=== PATIENT | male | born 1980 | race African-American/Black ===

== ENCOUNTER 2020-12-25 20:10 | Emergency (ER) | payer OTHER ==
[2020-12-25] MEDS ORDERED: DOXYCYCLINE HYCLATE 100 MG CAPSULE PO ONE ×2 (21:41→21:46)
[2020-12-25] MEDS ORDERED: DIPHTH,PERTUSS(ACELL),TET 0.5 ML DISP.SYRIN IM ONE ×2 (21:41→21:46)
[2020-12-25 21:43] VITALS: BP 132/85; PULSE 84; TEMP 98.6; BMI 31.5
[2020-12-25] MEDS ORDERED: metroNIDAZOLE 250 MG TABLET PO ONE (21:43)
[2020-12-25] MEDS ORDERED: metroNIDAZOLE 250 MG TABLET ONE (21:46)
== END 2020-12-25 23:33 | disposition home or self-care (01) ==
LOC: JERFT 20:10 → JER 20:10 → JERFT 23:33
PROC: 3E0234Z Introduction of Serum, Toxoid and Vaccine into Muscle, Percutaneous Approach (ICD-10-PCS; principal; 2020-12-25)
DX: S61.451A Open bite of right hand, initial encounter (principal); W54.0XXA Bitten by dog, initial encounter
CPT/HCPCS: 90715; 99284-25

== ENCOUNTER 2023-08-29 12:59 | Emergency (ER) | payer OTHER ==
[2023-08-29 13:03] VITALS: BP 145/81; PULSE 83; RESP 18; TEMP 98.2; BMI 32.3
[2023-08-29] MEDS ORDERED: KETOROLAC TROMETHAMINE 30 MG/1 ML VIAL ONE (14:21)
[2023-08-29] MEDS: KETOROLAC TROMETHAMINE 30 MG/1 ML VIAL IM ONE (14:25)
== END 2023-08-29 15:15 | disposition home or self-care (01) ==
LOC: JERFT 12:59
PROC: 3E0233Z Introduction of Anti-inflammatory into Muscle, Percutaneous Approach (ICD-10-PCS; principal; 2023-08-29)
DX: M54.50 Low back pain, unspecified (principal); M51.25 Other intervertebral disc displacement, thoracolumbar region; V87.7XXA Person injured in collision between other specified motor vehicles (traffic), initial encounter; Y93.I9 Activity, other involving external motion; Y92.410 Unspecified street and highway as the place of occurrence of the external cause
CPT/HCPCS: 72131-TC; 99284-25